=== PATIENT | female | born 1960 | race Caucasian/White ===

== ENCOUNTER 2017-02-16 20:13 | Observation (INO) | payer BC ==
[~2017-02-16] VITALS: Ht 162.6 cm; Wt 58.0 kg
[~2017-02-16 20:13] MED LIST: Cipro PO; KlonoPIN PO; MULTIVITAMIN1 EAC2 PO
[2017-02-16 21:03] LABS: MCH 32.2 PG (29.0-34.0); MCHC 34.6 G/DL (30.0-36.0); MCV 93.2 FL (83-99); MEAN PLAT.VOLUME 10.4 uM^3 (9.5-12.4); PLATELET COUNT 197 K/uL (156-360); RBC DIS.WIDTH-CV 11.9 % (11.8-14.6); RBC DIS.WIDTH-SD 41.1 % (39-53); RED BLOOD COUNT 3.97 M/uL (3.80-5.20)
[2017-02-16 21:11] LABS: CHLORIDE 109 mEq/L (99-109); POTASSIUM 3.7 mEq/L (3.7-5.4); SODIUM 145 mEq/L (136-147)
[2017-02-16 21:13] LABS: GLUCOSE 100 mg/dL (70-99)
[2017-02-16 21:14] LABS: ANION GAP 12 MEQ/L (2-14)
[2017-02-16 21:17] LABS: GFR ESTIMATE (CALCULATED) > 59 mL/min/
[2017-02-16 21:18] LABS: UREA NITROGEN (BUN) 15 mg/dL (9-23)
[2017-02-16 21:22] LABS: WHITE BLOOD COUNT 6.4 K/uL (4.1-10.2)
[2017-02-16 21:24] LABS: TROP-I INTERPRETATION NEGATIVE; TROPONIN-I < 0.01 ng/mL (0.0-0.30)
[2017-02-17] MEDS ORDERED: CENTRUM MULTIG80 MCG PO (00:04)
[2017-02-17] MEDS ORDERED: BYSTOLIC5 MG PO (00:05)
[2017-02-17] MEDS ORDERED: PROAIR HFA8.5 GM IH (00:05)
[2017-02-17] MEDS ORDERED: LO-DOSE ASPIRIN81 M2 PO (00:05)
[2017-02-17] MEDS ORDERED: OMEPRAZOLE20 MG PO (00:05)
[2017-02-17] MEDS ORDERED: HYDROCODON-ACE1 EAC8 PO (00:05)
[2017-02-17 02:35] VITALS: BP 162/76
[2017-02-17 04:58] LABS: TROP-I INTERPRETATION NEGATIVE; TROPONIN-I < 0.01 ng/mL (0.0-0.30)
[2017-02-17 05:07] VITALS: BP 122/57
[2017-02-17 05:10] LABS: HDL CHOLESTEROL 59 MG/DL (Desirable>=50); LDL CHOLESTEROL 115 mg/dL (Desirable<100); NON-HDL CHOLESTEROL 122 mg/dL (Desirable<160); TOTAL CHOLESTEROL 181 mg/dL (Desirable<200); TRIGLYCERIDES 35 MG/DL (Normal: <150)
[2017-02-17 08:24] VITALS: BP 166/83
[2017-02-17 09:38] LABS: TROP-I INTERPRETATION NEGATIVE; TROPONIN-I < 0.01 ng/mL (0.0-0.30)
[2017-02-17 12:00] VITALS: BP 164/77
[2017-02-17 15:18] VITALS: BP 128/75
[2017-02-17] MEDS ORDERED: LISINOPRIL20 MG PO (16:45)
[2017-02-17] MEDS ORDERED: ALPRAZOLAM0.5 MG PO (16:45)
== END 2017-02-17 17:45 | disposition home or self-care (01) ==
LOC: EME 20:13 → EDOF 02-17 00:01 → 5WEST 02-17 02:08
PROVIDERS: Physician Assistant Medical
DX: R07.89 Other chest pain (principal); I11.9 Hypertensive heart disease without heart failure; I49.1 Atrial premature depolarization; I49.3 Ventricular premature depolarization; D64.9 Anemia, unspecified; F41.1 Generalized anxiety disorder; M19.90 Unspecified osteoarthritis, unspecified site
CPT/HCPCS: 71020; 80048; 80061; 84484; 85027; 93005; 94760; 99202; 99281; 99285; G0378